=== PATIENT | female | born 1965 | race Asian ===

== ENCOUNTER 2022-11-11 11:37 | Emergency (ER) | payer BC, MEDICAID ==
[~2022-11-11] VITALS: Ht 165.1 cm; Wt 64.0 kg
[2022-11-11 11:46] VITALS: BP 124/63
[2022-11-11] MEDS ORDERED: KETOROLAC 30MG/ML VIAL IV STA (12:01)
[2022-11-11] MEDS ORDERED: SODIUM CHLORIDE 0.9% 1,000 ML IV ONE (12:15)
[2022-11-11 12:39] LABS: CHLORIDE 105 mEq/L (98-107)
[2022-11-11 12:40] LABS: HEMATOCRIT. 39.5 % (36.0-48.0); HEMOGLOBIN. 13.4 g/dL (12.0-16.0); MEAN CORPUSCULAR HEMOGLOBIN 30.1 pg (28.0-32.0); MEAN PLATELET VOLUME 7.3 fl (7.4-10.4); PLATELET 285 x1000/uL (130-400); RED BLOOD CELL COUNT 4.44 mill/uL (4.2-5.4); RED CELL DISTRIBUTION WIDTH 13.2 % (11.6-14.6)
[2022-11-11 13:44] LABS: PLATELET ESTIMATE NORMAL
[2022-11-11 15:02] LABS: CLARITY URINE CLEAR (CLEAR); COLOR URINE YELLOW (YELLOW); KETONES URINE 2+ (NEGATIVE); LEUKOCYTE ESTERASE URINE NEGATIVE (NEGATIVE); NITRITE URINE NEGATIVE (NEGATIVE); OCCULT BLOOD URINE 3+ (NEGATIVE); PH URINE 6.5 (4.5-8.0); PROTEIN URINE TRACE (NEGATIVE); SPECIFIC GRAVITY URINE 1.022 (1.005-1.030); UROBILINOGEN URINE 0.2 E.U./dL (0.2-1.0)
== END 2022-11-11 15:30 | disposition home or self-care (01) ==
LOC: ER 11:37
DX: N20.0 Calculus of kidney (principal); K80.20 Calculus of gallbladder without cholecystitis without obstruction
CPT/HCPCS: 36415; 74176; 76700; 80053; 81003; 83690; 85025; 93005; 96361; 96374; 99285; J1885; J7030